=== PATIENT | male | born 1980 | race Caucasian/White ===

== ENCOUNTER 2018-07-28 21:20 | Emergency (ER) | payer OTHER ==
[~2018-07-28] VITALS: Ht 180.3 cm; Wt 81.6 kg
[~2018-07-28 21:20] MED LIST: ADDERALL XR 3030 MG PO; AMOXICILLIN875 M1 PO; AMPHETAMINE SAL20 MG; AUGMENTIN 875-1 EACH PO; IBUPROFEN800 M1 PO; NEURONTIN600 M1 PO; OXYCODONE5 MG PO; PEN-VK500 MG PO; PERCOCET 325 MG1 TA2 PO; PERCOCET 325 MG1 TA3 PO; PERCOCET 5-3251 EACH PO; TRAMADOL HYDROC50 MG; VYVANSE60 M1 PO
[2018-07-28] MEDS ORDERED: CLINDAMYCIN HC150 M1 PO (23:08)
[2018-07-28] MEDS ORDERED: IBUPROFEN600 M1 PO (23:09)
[2018-07-28] MEDS ORDERED: PERCOCET 5-3251 EACH PO (23:09)
--- NOTE | 2018-07-28 23:12 | ED GENERAL ADULT ---
History of Present Illness General Chief Complaint: Sore Throat, Dental Pain Stated Complaint: "TOOTH CRACKED AND ABCESS RT FRONT UPPER TOOTH" Source: patient Exam Limitations: no limitations Vital Signs & Intake/Output Vital Signs & Intake/Output Vital Signs Date Time Temp Pulse Resp B/P B/P Pulse O2 O2 Flow FiO2 Mean Ox Delivery Rate 07/28 2323 98.0 98 18 120/82 99 Room Air 07/28 2143 98.0 109 18 125/83 99 Room Air ED Intake and Output 07/29 0000 07/28 1200 Intake Total 60 Output Total Balance 60 Intake, Oral 60 Patient 180 lb Weight Weight Reported by Patient Measurement Method Allergies Coded Allergies: No Known Allergies (06/14/18) Reconcile Medications Clindamycin HCl 150 MG CAPSULE 3 CAP PO TID dental infection/abscess Dextroamphetamine/Amphetamine (Adderall XR 30 MG Capsule) 30 MG CAP.ER.24H 1 CAP PO BID ADHD (Reported) Gabapentin (Neurontin) 600 MG TABLET 3 TAB PO BID NERVE PAIN (Reported) Ibuprofen 800 MG TABLET 1 TAB PO TID PRN pain Ibuprofen 600 MG TABLET 1 TAB PO TID PRN pain with food Oxycodone HCl/Acetaminophen (Percocet 5-325 MG Tablet) 5 MG-325 MG TABLET 1 TAB PO Q4-6 PRN PRN pain Oxycodone HCl/Acetaminophen (Percocet 5-325 MG Tablet) 5 MG-325 MG TABLET 1 TAB PO Q4-6 PRN PRN pain Triage Note: PT FROM HOME C/O OF RIGHT UPPER DENTAL PAIN THAT HAS BEEN ONGOING, IMPLANTS WILL BE PLACED MONDAY. PTS VSS. PT ALSO STATES "I NEED ANTIBIOTICS FOR AN ABSCESS IN MY GROIN AREA" Triage Nurses Notes Reviewed? yes Onset: Gradual Duration: day(s): Timing: constant HPI: 38-year-old male with a history of chronic back pain and ADD presenting with dental pain over the last few days. Patient reports that he had dental pain and infection to other previous teeth that have since been extracted. He now has pain to a right upper tooth over the past few days and has extraction scheduled for this Monday. Patient also reports an abscess to his perineal area. Has been present over the last few days. He was able to express a mild amount of purulent drainage at home. States that he has been recurrently getting these in this area for the past 9 months. He was previously seen at [facility] and had CT of the pelvis to rule out extension into his rectum. Patient states that he usually gets an antibiotic and the abscess goes away. He is requesting antibiotic treatment at this time. Denies fevers, nausea, vomiting. (Barbara Chavarria) Past History Travel History Traveled to [place] past 21 day No Medical History Any Pertinent Medical History? see below for history Neurological: NONE EENT: NONE Cardiovascular: NONE Respiratory: NONE Gastrointestinal: NONE Hepatic: NONE Renal: NONE Musculoskeletal: chronic back pain Psychiatric: ADHD Endocrine: NONE Other Medical Hx: poor dentition Surgical History Surgical History: non-contributory Psychosocial History What is your primary language Luxembourgish Tobacco Use: Current Daily Use Daily Tobacco Use Amount/Type: =< 4 Cigarettes daily Family History Hx Contributory? No (Barbara Chavarria) Review of Systems Review of Systems Constitutional: Reports: no symptoms. EENTM: Reports: see HPI. Respiratory: Reports: no symptoms. Cardiovascular: Reports: no symptoms. GI: Reports: no symptoms. Genitourinary: Reports: no symptoms. Musculoskeletal: Reports: no symptoms. Skin: Reports: see HPI. Neurological/Psychological: Reports: no symptoms. Hematologic/Endocrine: Reports: no symptoms. Immunologic/Allergic: Reports: no symptoms. All Other Systems: Reviewed and Negative (Barbara Chavarria) Physical Exam Physical Exam General Appearance: well developed/nourished, no apparent distress, alert, awake Comments: Gen.: Well-nourished, well-developed, no acute distress. Head: Normocephalic, atraumatic. Eyes: Normal inspection bilaterally Ears: Normal inspection bilaterally Nose: Normal inspection Oral cavity: Broken right upper tooth that is broken off at the gumline with intact root, the tooth is tender with tooth rest, no gingival abscess or purulent drainage Neck: Normal inspection Lungs: clear to auscultation bilaterally, normnal breath sounds Heart: regular rate and rhythm Abdomen: soft and non-tender Genitals: Small fluctuant area to the right side of the perineum, no surrounding erythema or induration, no purulent drainage Extremities: Normal inspection Neurologic: alert and oriented x3, steady gait Skin: warm and dry Psychiatric: Normal mood and affect, no apparent delusions or hallucinations, behavior appropriate Core Measures ACS in differential dx? No CVA/TIA Diagnosis: No Sepsis Present: No Sepsis Focused Exam Completed? No (Barbara Chavarria) Progress Differential Diagnoses I considered the following diagnoses in my evaluation of the patient: [Dental fracture versus apical abscess versus gingival abscess. Perineal abscess versus perirectal abscess versus cellulitis.] Plan of Care: Current Medications Sig/Edison Start time Last Medication Dose Stop Time Status Admin Clindamycin 450 MG ONCE ONE 07/28 2315 UNVr (Cleocin 150MG Cap) 07/28 2316 Oxycodone/ 1 TAB ONCE ONE 07/28 2315 UNVr Acetaminophen 07/28 2316 (Percocet) Patient offered CT of the pelvis to rule out perirectal abscess given the proximity of his fluctuant area to the rectum. He is declining at this time as he states he has had extensive testing in the past at [facility] which was all negative. He understands that if a perirectal abscess is not diagnosed that this could be a surgical emergency and life-threatening. He still wishes to decline imaging at this time. He was offered I&D of the area which she is also declining at this time. States that he always gets antibiotics with good resolution. He was given Rx clindamycin to cover for both dental abscess as well as skin abscess. Given ibuprofen and Percocet for pain. He will follow-up with his oral surgeon as scheduled on Monday. Given strict return precautions. Initial ED EKG: none (Barbara Chavarria) Departure Departure Disposition: HOME OR SELF CARE Condition: Stable Clinical Impression Primary Impression: Pain, dental Secondary Impressions: Abscess Referrals: Doc TAPIA,Yoan García (PCP/Family) Additional Instructions: Take clindamycin as prescribed. Use ibuprofen as needed for pain. Use Percocet as needed for breakthrough pain. Follow-up with your oral surgeon as scheduled on Monday. Return to the emergency department for any new or worsening symptoms. Departure Forms: Customer Survey General Discharge Information Prescriptions: Current Visit Scripts Clindamycin HCl 3 CAP PO TID #90 CAP Ibuprofen 1 TAB PO TID PRN pain #60 TAB with food Oxycodone HCl/Acetaminophen (Percocet 5-325 MG Tablet) 1 TAB PO Q4-6 PRN PRN pain #10 TAB (Barbara Chavarria) PA/DIRECTOR OF CAREER RESOURCES Co-Sign Statement Statement: ED Attending supervision documentation- [] I saw and evaluated the patient. I have also reviewed all the pertinent lab results and diagnostic results. I agree with the findings and the plan of care as documented in the PA's/DIRECTOR OF CAREER RESOURCES's documentation. [x] I have reviewed the ED Record and agree with the PA's/DIRECTOR OF CAREER RESOURCES's documentation. [] Additions or exceptions (if any) to the PAs/DIRECTOR OF CAREER RESOURCES's note and plan are summarized below: [] (Kaden TAPIA,[place]) Critical Care Note Critical Care Note Critical Care Time: non-applicable (Barbara Chavarria)
[2018-07-28 23:23] VITALS: BP 120/82
== END 2018-07-28 23:28 ==
LOC: ERH 21:20
DX: K08.89 Other specified disorders of teeth and supporting structures (principal); K04.7 Periapical abscess without sinus; F17.210 Nicotine dependence, cigarettes, uncomplicated